=== PATIENT | male | born 1955 | race Caucasian/White ===

== ENCOUNTER → 2016-07-06 | Outpatient (CLI) | payer BC, OTHER ==
--- NOTE | 2016-07-06 11:13 | REP ---
MR BRAIN WITHOUT AND WITH CONTRAST: HISTORY: Headaches. CONTRAST: ProHance 19.5 mL. COMPARISON: 10/31/2013 Several punctate areas of increased signal intensity on T2-weighted images area present in the periventricular and subcortical white matter. This represents small vessel ischemic disease. There is no intraparenchymal hemorrhage, infarct, mass, or midline shift. There is no abnormal enhancement. The ventricular system is normal in appearance. There is no extracerebral collection. Mucosal thickening is present in the ethmoid and maxillary sinuses. IMPRESSION: Minimal small vessel ischemic disease. Signed by Joshua Amador MD 07/06/2016 11:16 A
--- NOTE | 2016-07-06 16:12 | REP ---
Duplex carotid sonography: History: Headaches, dizziness, left carotid bruit. Findings: Antegrade flow was observed in both vertebral arteries. Right carotid: The right common carotid artery is tortuous and there is diffuse intimal thickening. Minimal soft plaquing is seen in the carotid bulb and proximal ICA on two-dimensional scanning. Color flow and spectral Doppler interrogation are unremarkable however. Velocity chart: Right carotid: CCA PSV 67 cm/s ICA PSV 53 cm/s ICA EDV 24 cm/s ECA PSV 92 cm/s Right ICA/CCA ratio normal 0.8. Impression: 0 to 15% category narrowing in the right ICA by Doppler velocity criteria. Left carotid: Left common carotid artery shows mild tortuosity and diffuse intimal thickening. There is mild mixed plaquing in the bulb and proximal ICA on the left side. The ICA is tortuous. Color flow and spectral Doppler interrogation are unremarkable on the left. Velocity chart left carotid: CCA PSV 139 cm/s ICA PSV 56 cm/s ICA EDV 15 cm/s ECA PSV 67 cm/s Left ICA/CCA ratio normal 0.5. Impression: 0 to 15% category narrowing in the left ICA by Doppler velocity criteria. The left ICA is tortuous. Signed by Ketan Ramsey MD 07/06/2016 04:35 P
== END ==
LOC: M RAD 09:32
PROVIDERS: ATTEND Family Medicine
DX: R51 Headache (principal)
CPT/HCPCS: 70553; 93880; A9576

== ENCOUNTER → 2016-07-06 | Outpatient (CLI) | payer BC, OTHER ==
--- NOTE | 2016-07-06 09:26 | ECGEPIP ---
Stationary ECG Study [facility] Test Date: 2016-07-06 Pat Name: EDDIE BOYLE Department: Room: - Gender: M [employer] Load [employer]: : [id number] Requested By: Janice López Order Number: [id number] Reading MD: Alix Alberto Measurements Intervals Barre Rate: 56 P: 37 WI: 146 QRS: 5 QRSD: 102 T: 44 QT: 424 QTc: 409 Interpretive Statements SINUS BRADYCARDIA ST ELEVATION, PROBABLY EARLY REPOLARIZATION Rate slower c/w 08/21/12 now also with mild high lateral early repolar changes Electronically Signed On 07-06-2016 9:26:38 EST by Alix Alberto
[2016-07-06 09:35] LABS: MEAN CORPUSCULAR HEMOGLOBIN 32.2 pg (27.0-33.0); MEAN CORPUSCULAR HGB CONC 34.3 g/dl (32.0-36.5); MEAN CORPUSCULAR VOLUME 93.8 fl (80.0-96.0); RED CELL DISTRIBUTION WIDTH 12.7 % (11.5-14.5); WHITE BLOOD COUNT 5.2 K/mm3 (4.0-10.0)
[2016-07-06 10:19] LABS: ALBUMIN 3.6 GM/DL (3.2-5.2); ALBUMIN/GLOBULIN RATIO 1.16 (1.00-1.93); ALKALINE PHOSPHATASE 88 U/L (45-117); ALT/SGPT 27 U/L (12-78); ANION GAP 7 MEQ/L (8-16); AST/SGOT 16 U/L (15-37); BILIRUBIN,TOTAL 0.4 MG/DL (0.2-1.0); BLOOD UREA NITROGEN 18 MG/DL (7-18); CALCIUM LEVEL 8.4 MG/DL (8.8-10.2); CARBON DIOXIDE LEVEL 29 MEQ/L (21-32); CHLORIDE LEVEL 107 MEQ/L (98-107); CHOLESTEROL LEVEL 171 MG/DL (<200); CREATININE FOR GFR 1.03 MG/DL (0.70-1.30); GLOMERULAR FILTRATION RATE > 60.0 (>49); GLUCOSE, FASTING 92 MG/DL (80-110); POTASSIUM SERUM 4.3 MEQ/L (3.5-5.1); SODIUM LEVEL 143 MEQ/L (136-145); TOTAL PROTEIN 6.7 GM/DL (6.4-8.2); TRIGLYCERIDES LEVEL 92 MG/DL (<150)
--- NOTE | 2016-07-06 10:38 | REP ---
Chest x-ray: Two views. History: Hypertension. Comparison study: August 21, 2012. Findings: The lungs are symmetrically aerated and free of infiltrate. Pleural angles are sharp. Heart size is normal. The aorta is slightly tortuous unchanged. Pulmonary vasculature is not increased. There are degenerative changes in the thoracic spine. Impression: No active disease. Signed by Ketan Ramsey MD 07/06/2016 03:02 P
== END ==
LOC: M LAB 08:18
PROVIDERS: ATTEND Family Medicine
DX: I10 Essential (primary) hypertension (principal)

== ENCOUNTER → 2018-11-12 | Outpatient (CLI) | payer BC, OTHER ==
[2018-11-12 08:30] LABS: HEMATOCRIT 39.4 % (42.0-52.0); HEMOGLOBIN 13.7 g/dl (13.5-17.5); MEAN CORPUSCULAR HEMOGLOBIN 32.2 pg (27.0-33.0); MEAN CORPUSCULAR HGB CONC 34.8 g/dl (32.0-36.5); MEAN CORPUSCULAR VOLUME 92.5 fl (80.0-96.0); PLATELET COUNT, AUTOMATED 191 10^3/uL (150-450); RED BLOOD COUNT 4.26 10^6/uL (4.30-6.10); WHITE BLOOD COUNT 7.4 10^3/uL (4.0-10.0)
--- NOTE | 2018-11-12 08:43 | REP ---
The PA and lateral chest: Comparison is 07/06/2016. The lung navarro are clear. The cardiac size is normal. The toni, mediastinum, and skeletal structures are unremarkable. Impression: Negative PA and lateral chest for patient age . There is no interval change Electronically Signed by French Rosario MD 11/12/2018 08:33 A
[2018-11-12 08:49] LABS: HEMOGLOBIN A1c 5.7 %
[2018-11-12 09:03] LABS: ALBUMIN 3.7 GM/DL (3.2-5.2); ALT/SGPT 30 U/L (12-78); BILIRUBIN,TOTAL 0.4 MG/DL (0.2-1.0); BLOOD UREA NITROGEN 14 MG/DL (7-18); CALCIUM LEVEL 9.2 MG/DL (8.8-10.2); CARBON DIOXIDE LEVEL 30 MEQ/L (21-32); CHLORIDE LEVEL 107 MEQ/L (98-107); CHOLESTEROL LEVEL 204 MG/DL (<200); CREATININE FOR GFR 1.15 MG/DL (0.70-1.30); GLOMERULAR FILTRATION RATE > 60.0 (>49); GLUCOSE, FASTING 103 MG/DL (70-100); HDL CHOLESTEROL 51 MG/DL (>40); LDL CHOLESTEROL 125 MG/DL (<100); NON-HDL-C 153 MG/DL; POTASSIUM SERUM 4.2 MEQ/L (3.5-5.1); PROSTATIC SPECIFIC AG MONITOR 3.53 NG/ML (< 4.00); SODIUM LEVEL 141 MEQ/L (136-145); TOTAL PROTEIN 7.3 GM/DL (6.4-8.2); TRIGLYCERIDES LEVEL 141 MG/DL (<150)
[2018-11-12 09:06] LABS: TOTAL 25(OH) VITAMIN D 67.2 NG/ML (30.0-100.0)
[2018-11-12 09:07] LABS: TESTOSTERONE 717 NG/DL (241-827)
== END ==
LOC: M LAB 07:50
PROVIDERS: ATTEND Family Medicine
DX: I10 Essential (primary) hypertension (principal); E03.9 Hypothyroidism, unspecified

== ENCOUNTER → 2019-05-23 | Outpatient (CLI) | payer BC, OTHER ==
[2019-05-23 08:00] LABS: HEMATOCRIT 38.8 % (42.0-52.0); HEMOGLOBIN 13.5 g/dl (13.5-17.5); MEAN CORPUSCULAR HEMOGLOBIN 32.1 pg (27.0-33.0); MEAN CORPUSCULAR HGB CONC 34.8 g/dl (32.0-36.5); MEAN CORPUSCULAR VOLUME 92.2 fl (80.0-96.0); PLATELET COUNT, AUTOMATED 210 10^3/uL (150-450); RED BLOOD COUNT 4.21 10^6/uL (4.30-6.10); WHITE BLOOD COUNT 6.4 10^3/uL (4.0-10.0)
[2019-05-23 08:30] LABS: ALBUMIN 3.8 GM/DL (3.2-5.2); ALT/SGPT 28 U/L (12-78); BILIRUBIN,TOTAL 0.5 MG/DL (0.2-1.0); BLOOD UREA NITROGEN 17 MG/DL (7-18); CALCIUM LEVEL 9.1 MG/DL (8.8-10.2); CARBON DIOXIDE LEVEL 29 MEQ/L (21-32); CHLORIDE LEVEL 106 MEQ/L (98-107); CHOLESTEROL LEVEL 196 MG/DL (<200); CHOLESTEROL RISK RATIO 3.843 (<5); GLOMERULAR FILTRATION RATE > 60.0 (>49); GLUCOSE, FASTING 114 MG/DL (70-100); HDL CHOLESTEROL 51 MG/DL (>40); LDL CHOLESTEROL 124 MG/DL (<100); NON-HDL-C 145 MG/DL; POTASSIUM SERUM 4.3 MEQ/L (3.5-5.1); PROSTATIC SPECIFIC AG MONITOR 3.27 NG/ML (< 4.00); SODIUM LEVEL 141 MEQ/L (136-145); TRIGLYCERIDES LEVEL 104 MG/DL (<150)
--- NOTE | 2019-05-23 08:45 | REP ---
Clinical: Pain. Technique: Neutral and frog lateral views of the right and left hip. Findings: Osseous structures, joint spaces, and surrounding soft tissues are relatively normal for age. Mild degenerative changes include increased sclerosis along the acetabular roof with subtle marginal spurring and minimal superior joint space narrowing. No acute fracture dislocation. Impression: Mild symmetric age-related changes. Electronically Signed by Vel Walsh MD 05/23/2019 08:36 A
--- NOTE | 2019-05-23 08:46 | REP ---
Clinical: Low back pain. Technique: AP, lateral, bilateral oblique and coned-down views of the lumbosacral spine. Findings: The patient is noted to be status post laminectomy and posterior fixation at the L4-5 level. Moderate/early advanced multilevel degenerative changes include endplate sclerosis, facet arthropathy, disc space narrowing. No acute fracture / compression injury or subluxation. Impression: Moderate/early advanced multilevel degenerative spondylosis. Electronically Signed by Vel Walsh MD 05/23/2019 08:37 A
[2019-05-23 09:28] LABS: TESTOSTERONE 775 NG/DL (241-827)
== END ==
LOC: M LAB 06:53
PROVIDERS: ATTEND Family Medicine
DX: M54.30 Sciatica, unspecified side (principal); R53.83 Other fatigue

== ENCOUNTER → 2020-01-20 | Outpatient (CLI) | payer BC, OTHER ==
--- NOTE | 2020-02-07 15:19 | SLEEPCENT ---
DATE: 01/20/2020 ORDERED BY: Dr. Sammi Lebron Nocturnal polysomnography was performed for evaluation of sleep physiology in this patient with a history of excessive somnolence and nonrestorative sleep. There was 7 hours and 27 minutes of data reviewed. There was 359.5 minutes of sleep identified. Sleep latency was mildly prolonged at 18.5 minutes. REM latency more so prolonged at 233.5 minutes. Sleep architecture, initially fragmented, improved after interventions were made. Overall sleep efficiency was 81.2%. The patient's electrocardiogram showed a sinus rhythm with an average heart rate of 46 beats per minute. Rate ranged 40-62. EEG showed mild coarsening in background, otherwise normal waveforms for wake and sleep. There were 154 respiratory events identified of 10 seconds in duration or greater for an apnea- hypopnea index of 25.7. Events were associated with sleep fragmentation and oxygen desaturations into the 80s. Having established the presence of obstructive sleep apnea syndrome early in testing, the study was stopped shortly before 1 a.m. for the application of pressure therapy. The patient was fit with a ResMed AirFit N20 nasal mask of large size. There was 5 cm of water pressure applied to the circuit, and the lights were again extinguished. Throughout the remaining hours of testing, respiratory events were well palliated, and remaining measures of sleep physiology were normal. IMPRESSION: Obstructive sleep apnea syndrome (G47.33). Apnea-hypopnea index 25.7. RECOMMENDATION: Nightly use of pressure therapy, 5 cm of water. MTDD
== END ==
LOC: M SLEEP 20:00
PROVIDERS: ATTEND Nurse Practitioner Family
DX: R06.83 Snoring (principal)

== ENCOUNTER → 2020-01-23 | Outpatient (CLI) | payer BC, OTHER | LOC: M LABSMTC 11:48 | PROVIDERS: ATTEND Internal Medicine Cardiovascular Disease | DX: Z20.828 Contact with and (suspected) exposure to other viral communicable diseases (principal) | CPT/HCPCS: C9803; U0003 ==